=== PATIENT | male | born 1935 | race Two or more races ===

== ENCOUNTER 2024-04-08 12:27 | Outpatient (AMB) | payer MEDICARE, OTHER, SELFPAY ==
--- NOTE | 2024-04-08 12:29 | MHC.PC.OV ---
Vital Signs 04/08/24 12:36 Height 5 ft 6 in Weight 153 lb 2 oz BMI 24.7 BP 132/70 Blood Pressure Location Rt brachial Position Sitting Respiration 14 Pulse 65 Pulse Source Pulse Oximeter Pulse Oximetry (%) 99 Oxygen Delivery Method Room Air Intake Visit Reasons: BIOLOGY INTERN-EST CARE Intake Note: new patient to establish care Allergies aspirin Allergy (Severe, Verified 04/08/24 12:59) Anxiety Medication List - Last Reconciled 04/08/24 by Destiny Aleman, [facility]- dorzolamide-timolol 22.3-6.8 mg/mL 1 drp ophthalmic (eye) BID folic acid 1 mg PO DAILY latanoprost 0.005% 1 drp ophthalmic (eye) BEDTIME Tobacco use date assessed: 04/08/24 Dental Screening Dental Screen Date: 04/08/24 Did you have a dental visit in the last 12 months?: Yes Did you have a dental problem in the last 6 months where you did not have access to dental care?: No Was dental information given to patient?: Patient has dentist HPI HPI Comments History of Present Illness Details 89-year-old male with colon cancer, cataracts, CKD 3A, 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, ileostomy, glaucoma, B12 deficiency with anemia, coronary artery calcification noted on CT of the chest 08/17/2022 moderate, aorta mild vascular calcification without aneurysm, gynecomastia, superior segment left lower lobe subpleural nodule, lower paratracheal lymph node Status post cholecystectomy Family history 2 sisters, 3 brothers, sister with colon cancer, brothers with prostate cancer and alcoholism and drug abuse Social: Retired, single Health Maintanence: Colonoscopy 2013 Tdap 2023, Flu 2023 He has advanced directive of healthcare, durable [id number] and living well [facility] Optometry appt tomorrow Here today to establish care. Would like to discuss today a CT scan that he had done of his chest and 2022. He provides this report for me. He is unsure why this report was done however the reason for the exam listed was lymphadenopathy of the chest or axilla. The CT scan is significant for a noncalcified subpleural nodule in the superior segment left lower lobe that has increased in size currently 6 x 7 mm previously 5 x 5 mm. No new pulmonary nodules. Calcified right medial apical nodule unchanged. Stable 1.1 cm short access lower paratracheal lymph node. Additional mediastinal and hilar lymph nodes are all subcentimeter. He states that he feels well. He has no pulmonary complaints. Reports that his weight is stable. He does not smoke. He does not have secondhand smoke exposure. He does have a history of colon cancer diagnosed about 10 years ago, considered in remission. Has an ileostomy. Did not require chemo or radiation. No f/u for lung Exam Awake alert oriented, no acute distress, appears younger than stated age Regular rate rhythm Lung sounds clear to auscultation bilat No edema bilateral lower extremities Plan Check routine screening labs today, specifically to include renal function prior to the CT scan with IV contrast require to evaluate left lower lobe lung nodule with interval change. The patient requested this be done at [facility]. I would like to see him back to discuss the results and come up with a plan of care. I would like to see him in 2-4 weeks, sooner as needed This note is constructed using voice recognition software. While every effort has been made to ensure accuracy in pin sorter and bagger, still errors may have been included Sometimes, these errors may affect the content or meaning of the given sentence . Total time spent caring for the patient today was 45 minutes. This includes time spent before the visit reviewing the chart, time spent during the visit, and time spent after the visit on documentation [facility] Social History (Updated 04/08/24 @ 12:36 by Chencho Salinas MA) Household Members: None Housing: House Are you a primary assurance services manager health care to a significant other at home: No Do you presently have visiting nurse or other home services: Yes Patient Tobacco Use Status: Never used Tobacco e-Cigarette/Vaping Use: Never Used service: No Current occupational status: retired Cognitive needs: No Hearing needs: No Vision needs: Yes (wear glasses) Questionnaire PHQ-9 Over the last 2 weeks, how often have you been bothered by any of the following problems? 1. Little interest or pleasure in doing things: not at all 2. Feeling down, depressed, or hopeless: not at all 3. Trouble falling or staying asleep, or sleeping too much: not at all 4. Feeling tired or having little energy: not at all 5. Poor appetite or overeating: not at all 6. Feeling bad about yourself - or that you are a failure or have let yourself or your family down: not at all 7. Trouble concentrating on things, such as reading the newspaper or watching television: not at all 8. Moving or speaking so slowly that other people could have noticed. Or the opposite - being so fidgety or restless that you have been moving around a lot more than usual: not at all 9. Thoughts that you would be better off or of hurting yourself in some way: not at all Total score: 0 Depression Screening Interpretation: Negative Depression Screening Done: Yes 64284 - PHQ-9 Billing: Yes Source: Developed by Drs. Wilbert Flores, Parris Gallego, Trenton Bautista and colleagues, with an educational geraldo from [employer]. Thrive Questionnaire Date Thrive assessed: 04/08/24 I am a: Patient What is your living situation today?: I have a steady place to live Within the past 12 months, did the food you bought not last and you didn't have the money to get more?: Never true Within the past 12 months, did you worry whether your food would run out before you got money to buy more?: Never true Do you have trouble paying for medicines?: No Do you have trouble getting transportation to medical appointments?: No Do you have trouble paying your heating and electricity bill?: No Do you have trouble taking care of your child, family member or friend?: No Do you have trouble with day-to-day activities such as bathing, preparing meals, shopping, managing finances, etc.?: No Are you currently unemployed and looking for a job?: No Are you interested in more education?: No THRIVE Score: 0 AUDIT C Alcohol Use Questionnaire (AUDIT-C) 1. How often do you have a drink containing alcohol?: 4 or more times a week 2. How many drinks containing alcohol do you have on a typical day when you are drinking?: 1 or 2 3. How often do you have six or more drinks on one occasion?: Never Total Score: 4 KAYLA-7 AMB Questionnaire KAYLA-7 Date KAYLA - 7 assessed: 04/08/24 Feeling nervous, anxious, or on edge: 0 = Not at all Not being able to stop or control worryin = Not at all Worrying too much about different things: 0 = Not at all Trouble relaxin = Not at all Being so restless that it is hard to sit still: 0 = Not at all Becoming easily annoyed or irritable: 1 = Several days Feeling afraid as if something awful might happen: 0 = Not at all Total KAYLA-7 score (0-4 normal; 5-9 mild; 10-14 moderate; 15-21 severe): 1 Source: Developed by Drs. Wilbert Flores, Parris Gallego, Trenton Bautista and colleagues, with an educational geraldo from [employer]. KAYLA-7 Assessment Billing KAYLA-7 Assessment Tool: KAYLA-7 Assessment 21190 Physical exam (Primary Care) Vital Signs: Last Vital Signs Pulse 65 04/08/24 12:36 Resp 14 04/08/24 12:36 BP 132/70 04/08/24 12:36 Pulse Ox 99 04/08/24 12:36 Oxygen Delivery Method Room Air 04/08/24 12:36 BMI result Body Mass Index 24.7 Tobacco/Smoking Status: Tobacco use Status Tobacco use date assessed 04/08/24 04/08/24 12:38 Patient Tobacco Use Status Never used Tobacco 04/08/24 12:38 e-Cigarette/Vaping Use Never Used 04/08/24 12:38 PHQ-9: PHQ-9 Score PHQ-9: Total score 0 04/08/24 13:18 Depression Screening Interpretation: Negative Thrive Assessment: Date of Thrive Assessment Date Thrive assessed 04/08/24 04/08/24 13:18 Advance Care Planning discussion: Exists, not on file Date of discussion: 04/08/24 Forms completed: Health Care Proxy and MOLST Time spent: 1-15 minutes, not on file Actual minutes spent: 5 Coding Level of Care Code New Pt Level 4 (74538) Complex EM visit Add On G2211 Diagnoses Stage 3a chronic kidney disease N18.31 Chronic kidney disease stage 3 subtype: stage 3a (GFR 45-59) Lung nodule R91.1 Malignant neoplasm of colon, unspecified part of colon C18.9 Colon location: unspecified part of colon Ileostomy in place Z93.2 Other vitamin B12 deficiency anemia D51.8 Vitamin B12 deficiency anemia type: other B12 deficiency Additional Codes KAYLA-7 Assessment Billing - KAYLA-7 Assessment Tool: KAYLA-7 Assessment 71692 ([id number]) Vital Signs *Quality* - Advance Care Planning discussion: Exists, not on file ([id number]) Vital Signs *Quality* - Time spent: 1-15 minutes, not on file ([id number]) Assessment & Plan Assessment & Plan (1) CKD (chronic kidney disease) stage 3, GFR 30-59 ml/min: Code(s): N18.30 - Chronic kidney disease, stage 3 unspecified Category: Medical Qualifiers: Chronic kidney disease stage 3 subtype: stage 3a (GFR 45-59) Qualified Code(s): N18.31 - Chronic kidney disease, stage 3a Plan: . (2) Lung nodule: Comment: 08/17/[address] scan is significant for a noncalcified subpleural nodule in the superior segment left lower lobe that has increased in size currently 6 x 7 mm previously 5 x 5 mm. No new pulmonary nodules. Calcified right medial apical nodule unchanged. Stable 1.1 cm short access lower paratracheal lymph node. Additional mediastinal and hilar lymph nodes are all subcentimeter. Code(s): R91.1 - Solitary pulmonary nodule Category: Medical Plan: . (3) Colon cancer: Code(s): C18.9 - Malignant neoplasm of colon, unspecified Category: Medical Qualifiers: Colon location: unspecified part of colon Qualified Code(s): C18.9 - Malignant neoplasm of colon, unspecified (4) Ileostomy in place: Code(s): Z93.2 - Ileostomy status Category: Medical (5) B12 deficiency anemia: Code(s): D51.9 - Vitamin B12 deficiency anemia, unspecified Category: Medical Qualifiers: Vitamin B12 deficiency anemia type: other B12 deficiency Qualified Code(s): D51.8 - Other vitamin B12 deficiency anemias Plan . Orders: Orders CT chest w IV con Today R91.1 - Solitary pulmonary nodule IRON PROFILE Today D51.9 - Vitamin B12 deficiency anemia, unspecified, N18.30 - Chronic kidney disease, stage 3 unspecified, R91.1 - Solitary pulmonary nodule TSH reflex Free T4 Today D51.9 - Vitamin B12 deficiency anemia, unspecified, N18.30 - Chronic kidney disease, stage 3 unspecified, R91.1 - Solitary pulmonary nodule Vitamin D 25-OH Total Today D51.9 - Vitamin B12 deficiency anemia, unspecified, N18.30 - Chronic kidney disease, stage 3 unspecified, R91.1 - Solitary pulmonary nodule Complete Blood Count no Diff Today D51.9 - Vitamin B12 deficiency anemia, unspecified, N18.30 - Chronic kidney disease, stage 3 unspecified, R91.1 - Solitary pulmonary nodule Comprehensive Met. Panel Today D51.9 - Vitamin B12 deficiency anemia, unspecified, N18.30 - Chronic kidney disease, stage 3 unspecified, R91.1 - Solitary pulmonary nodule Hemoglobin A1c Today D51.9 - Vitamin B12 deficiency anemia, unspecified, N18.30 - Chronic kidney disease, stage 3 unspecified, R91.1 - Solitary pulmonary nodule Lipid Panel Today D51.9 - Vitamin B12 deficiency anemia, unspecified, N18.30 - Chronic kidney disease, stage 3 unspecified, R91.1 - Solitary pulmonary nodule Microalbumin, Random (w Creat) Today D51.9 - Vitamin B12 deficiency anemia, unspecified, N18.30 - Chronic kidney disease, stage 3 unspecified, R91.1 - Solitary pulmonary nodule PSA, Ultra Sensitive Today D51.9 - Vitamin B12 deficiency anemia, unspecified, N18.30 - Chronic kidney disease, stage 3 unspecified, R91.1 - Solitary pulmonary nodule Vitamin B12 and Folate Today D51.9 - Vitamin B12 deficiency anemia, unspecified, N18.30 - Chronic kidney disease, stage 3 unspecified, R91.1 - Solitary pulmonary nodule
[2024-04-08 12:36] VITALS: BP 132/70; PULSE 65; RESP 14; O2SAT 99; BMI 24.7
== END 2024-04-08 13:17 | disposition home or self-care (01) ==
PROVIDERS: Visit Provider Nurse Practitioner Family
DX: N18.31 Chronic kidney disease, stage 3a (principal); R91.1 Solitary pulmonary nodule; C18.9 Malignant neoplasm of colon, unspecified; Z93.2 Ileostomy status; D51.8 Other vitamin B12 deficiency anemias; Z00.00 Encounter for general adult medical examination without abnormal findings

== ENCOUNTER → 2024-04-08 12:27 | Outpatient (BNVA) | payer MEDICARE, OTHER, SELFPAY | PROVIDERS: Visit Provider Nurse Practitioner Family ==

== ENCOUNTER 2024-04-08 13:32 | Outpatient (REF) | payer MEDICARE, OTHER, SELFPAY ==
[2024-04-08 18:30] LABS: Creatinine Urine 53.98 mg/dL; Microalbumin Urine < 5.0 mg/L
[2024-04-08 18:31] LABS: Alanine Aminotransferase 17 U/L (0-40); Albumin Level 4.2 g/dL (3.5-5.0); Alkaline Phosphatase 58 U/L (39-117); Anion Gap 9 (12-20); Aspartate Amino Transferase 23 U/L (5-37); Bilirubin Total 0.6 mg/dL (0.0-1.0); Blood Urea Nitrogen 22 mg/dL (9-16); Calcium 9.5 mg/dL (8.4-10.2); Carbon Dioxide 24 mmol/L (22-29); Chloride 107 mmol/L (96-108); Cholesterol 194 mg/dL (<200); Estimated Glomerular Filt Rate 49; Glucose Random 96 mg/dL (60-115); HDL Cholesterol 75 mg/dL (>40); Iron 134 mcg/dL (45-160); LDL Cholesterol Calculated 99 mg/dL (<100); Percent Iron Saturation 54 % (15-50); Potassium 4.9 mmol/L (3.3-5.1); Sodium 135 mmol/L (135-145); Total Iron Binding Capacity 248 mcg/dL (228-428); Total Protein 7.6 g/dL (6.5-8.0); Triglycerides 103 mg/dL (<150); Unsaturated Iron Binding 114 ug/dL
[2024-04-08 18:47] LABS: TSH reflex Free T4 2.32 uIU/mL (0.32-4.0); Vitamin D 25-OH Total 43.1 ng/mL (>30)
[2024-04-08 18:57] LABS: Folate 19.9 ng/mL (> or = 4.0); Vitamin B12 762 pg/mL (200-900)
[2024-04-08 19:40] LABS: Hematocrit 36.7 % (42.0-52.0); Hemoglobin 12.4 g/dl (14.0-18.0); Mean Corpuscular HGB Conc 33.8 g/dl (31.0-36.0); Mean Corpuscular Hemoglobin 33.6 pg (27.0-33.0); Mean Corpuscular Volume 99.5 fL (80.0-98.0); Mean Platelet Volume 10.4 fL (9.4-12.4); Platelet Count 232 X10*3/uL (160-400); Red Blood Count 3.69 X10*6/uL (4.60-5.80); Red Cell Distribution Width 13.5 % (11.0-16.0); White Blood Count 5.4 X10*3/uL (4.8-10.8)
[2024-04-09 05:13] LABS: Estimated Average Glucose 105 mg/dL; Hemoglobin A1C 109.3262 umol/L; Hemoglobin A1c % 5.3 % (<6.0); Total Hemoglobin (HGBA1C) 3152.8559 umol/L
[2024-04-13 14:48] LABS: PSA, Ultra Sensitive 4.98 ng/mL
== END 2024-04-08 13:33 | disposition home or self-care (01) ==
LOC: HO.WFDLDS 13:32
PROVIDERS: Visit Provider Nurse Practitioner Family
DX: N18.31 Chronic kidney disease, stage 3a (principal); R91.1 Solitary pulmonary nodule; C18.9 Malignant neoplasm of colon, unspecified; D51.8 Other vitamin B12 deficiency anemias; Z93.2 Ileostomy status; Z12.5 Encounter for screening for malignant neoplasm of prostate
CPT/HCPCS: 36415; 80053; 80061; 82306; 82570; 82607; 82746; 83036; 83540; 84153; 84443; 85027; 96127; 99202

== ENCOUNTER → 2024-05-12 10:54 | Outpatient (BNVA) | payer MEDICARE, OTHER, SELFPAY | PROVIDERS: PCP Nurse Practitioner Family; Visit Provider Nurse Practitioner Family ==